=== PATIENT | female | born 1990 | race African-American/Black ===

== ENCOUNTER 2019-02-14 09:22 | Emergency (ER) | payer SELFPAY ==
[2019-02-14 09:26] VITALS: BP 116/73; PULSE 83; TEMP 98.1; BMI 22.9
--- NOTE | 2019-02-14 10:29 | PDOC ---
History of Present Illness - General Chief Complaint: Diarrhea Stated Complaint: DIARRHEA Time Seen by Provider: 02/14/19 09:47 - History of Present Illness Initial Comments: 02/14/19 10:23 CHIEF COMPLAINT: diarrhea HISTORY OF PRESENT ILLNESS: 28 yo F with no PMH presents to [facility] for diarrhea x 5 days. Patient states she and her boyfriend went to eat last monday and on Monday when she woke up she's had diarrhea every day since. She denies any fever, abdominal pain, vomiting. Reports 4-5 episodes diarrhea daily. No recent travel or sick contacts. PAST MEDICAL HISTORY: Denies past medical history FAMILY HISTORY: Denies SOCIAL HISTORY: Denies tobacco, alcohol, illicit drug use. SURGICAL HISTORY: Denies ALLERGIES: No known drug allergies REVIEW OF SYSTEMS General/Constitutional: Denies fever or chills. Denies weakness, weight change. HEENT: Denies change in vision. Denies ear pain or discharge. Denies sore throat. Cardiovascular: Denies chest pain or shortness of breath. Respiratory: Denies cough, wheezing, or hemoptysis. Gastrointestinal: Diarrhea x 5 days. Denies nausea, vomiting, constipation. Denies rectal bleeding. Genitourinary: Denies dysuria, frequency, or change in urination. Musculoskeletal: Denies joint or muscle swelling or pain. Denies neck or back pain. Skin and breasts: Denies rash or easy bruising. Neurologic: Denies headache, vertigo, loss of consciousness, or loss of sensation. PHYSICAL EXAM General Appearance: Well-appearing, appropriately dressed. No apparent distress , no intoxication. HEENT: EOMI, PERRLA, normal ENT inspection, normal voice, TMs normal, pharynx normal. No conjunctival pallor. No photophobia, scleral icterus. Neck: Supple. Trachea midline. No tenderness, rigidity, carotid bruit, stridor , lymphadenopathy, or thyromegaly. Respiratory/Chest: Lungs CTAB. No shortness of breath, chest tenderness, respiratory distress, accessory muscle use. No crackles, rales, rhonchi, stridor , wheezing, dullness Cardiovascular: RRR. S1, S2. No JVD, murmur, bradycardia, tachycardia. Vascular Pulses: Dorsalis-Pedis (R): 2+, Dorsalis-Pedis (L): 2+ Gastrointestinal/Abdominal: Normal bowel sounds. Abdomen soft, non-distended. No tenderness or rebound tenderness. No organomegaly, pulsatile mass, guarding , hernia, hepatomegaly, splenomegaly. Musculoskeletal/Extremities: Normal inspection. FROM of all extremities, normal capillary refill. Pelvis Stable. No CVA tenderness. No tenderness to extremities, pedal edema, swelling, erythema or deformity. Integumentary: Appropriate color, dry, warm. No cyanosis, erythema, jaundice or rash Neurologic: socket puller II-XII intact. Fully oriented, alert. Appropriate mood/affect. Motor strength 5/5. No appreciable EOM palsy, facial droop or sensory deficit. 02/14/19 10:56 Past History - Past Medical History Allergies/Adverse Reactions: Allergies Allergy/AdvReac Type Severity Reaction Status Date / Time No Known Allergies Allergy Verified 02/14/19 09:26 Home Medications: Ambulatory Orders Loperamide HCl [Anti-Diarrheal] 2 mg PO ASDIR #10 tablet 02/14/19 COPD: No - Suicide/Smoking/Psychosocial Hx Smoking History: Never smoked Information on smoking cessation initiated: No Hx Alcohol Use: No Drug/Substance Use Hx: No *Physical Exam - Vital Signs Last Vital Signs Temp Pulse Resp BP Pulse Ox 98.1 F 83 19 116/73 99 02/14/19 09:24 02/14/19 09:24 02/14/19 09:24 02/14/19 09:24 02/14/19 09:24 Medical Decision Making - Medical Decision Making 02/14/19 10:59 28 yo F with no PMH [facility] to [facility] for diarrhea x 5 days. Patient states she and her boyfriend went to eat last monday and on Monday when she woke up she's had diarrhea every day since. -loperamide Advised patient to stay well hydrated and of signs and symptoms for return to ER. PAtient verbalized understanding and agrees to plan. *DC/Admit/Observation/Transfer Diagnosis at time of Disposition: Diarrhea Qualifiers: Diarrhea type: unspecified type Qualified Code(s): R19.7 - Diarrhea, unspecified - Discharge Dispostion Disposition: HOME Condition at time of disposition: Stable Decision to Admit order: No - Prescriptions Prescriptions: Loperamide HCl [Anti-Diarrheal] 2 mg PO ASDIR #10 tablet - Referrals Referrals: Jerome Jules [Primary Care Provider] - - Patient Instructions Printed Discharge Instructions: [place] Diet, DI for Diarrhea and Traveler's Diarrhea -- Adult - Post Discharge Activity
== END 2019-02-14 11:04 | disposition home or self-care (01) ==
LOC: JERFT 09:22
DX: R19.7 Diarrhea, unspecified (principal)
CPT/HCPCS: 99282-25

== ENCOUNTER 2019-07-01 07:21 | Emergency (ER) | payer OTHER ==
[2019-07-01 07:39] VITALS: BP 101/58; PULSE 77; TEMP 98; BMI 24.0
--- NOTE | 2019-07-01 08:07 | PDOC ---
History of Present Illness - General Chief Complaint: Pain, Acute Stated Complaint: CRAMPS, 7WEEKS Time Seen by Provider: 07/01/19 08:05 History Source: Patient Exam Limitations: No Limitations - History of Present Illness Initial Comments: 28 yo F approximately 7 weeks GA based on LMP with no past medical history presents to the emergency department with abdominal cramping that has been ongoing for 7 days. Per the patient, she states that it began gradually and is located in the lower abdomen most notably in the suprapubic region. Denies the following: fevers, chills, SOB, chest pain, nausea, vomiting, dysuria, hematuria , diarrhea, and leg pain/swelling. Per the patient, she denies trauma to the region. The cramps are described as the following: dull, 3/10, non radiating, without aggravating or reliving factors that are intermittent in nature. Denies associative vaginal bleeding and discharge Allergies: NKDA Past History - Past Medical History Allergies/Adverse Reactions: Allergies Allergy/AdvReac Type Severity Reaction Status Date / Time No Known Allergies Allergy Verified 07/01/19 07:36 Home Medications: Ambulatory Orders Loperamide HCl [Anti-Diarrheal] 2 mg PO ASDIR #10 tablet 02/14/19 Clotrimazole [Ebcb-Hxqojmwt-9] 45 gm VG DAILY 7 Days #1 cream.appl 07/01/19 Pnv No.95/Ferrous Fum/Folic AC [ Vitamin Tablet] 1 each PO DAILY #28 tablet 07/01/19 Anemia: Yes (CHILDHOOD) COPD: No - Immunization History Immunization Up to Date: Yes - Psycho Social/Smoking Cessation Hx Smoking History: Never smoked Hx Alcohol Use: No Drug/Substance Use Hx: No Review of Systems - Review of Systems Able to Perform ROS?: Yes Is the patient limited Bulgarian proficient: No Constitutional: No: Chills, Diaphoresis, Fever, Weakness HEENTM: No: Eye Pain, Ear Pain, Nose Pain, Throat Pain, Mouth Pain Respiratory: No: Cough, Shortness of Breath, Hemoptysis Cardiac (ROS): No: Chest Pain, Lightheadedness, Palpitations, Chest Tightness ABD/GI: Yes: Abdominal cramping. No: Constipated, Diarrhea, Nausea, Poor Appetite, Poor Fluid Intake, Rectal Bleeding, Vomiting, Indigestion, Tarry Stools : No: Burning, Hematuria Musculoskeletal: No: Back Pain, Joint Pain, Neck Pain Integumentary: No: Bruising, Erythema, Rash Neurological: No: Headache, Numbness, Tremors Psychiatric: No: Change in Appetite Endocrine: No: Unexplained Weight Loss Hematologic/Lymphatic: No: Anemia *Physical Exam - Vital Signs Last Vital Signs Temp Pulse Resp BP Pulse Ox 98.0 F 77 18 101/58 L 100 07/01/19 07:37 07/01/19 07:37 07/01/19 07:37 07/01/19 07:37 07/01/19 07:37 - Physical Exam General Appearance: Yes: Nourished, Appropriately Dressed. No: Apparent Distress, Intoxicated HEENT: positive: EOMI, ROGERIO, Normal Voice, Symmetrical, Pharynx Normal, Hearing Grossly Normal. negative: Pale Conjunctivae, Scleral Icterus (R), Scleral Icterus (L), Muffled/Hoarse voice, Pharyngeal Erythema, Tonsillar Exudate, Tonsillar Erythema, Nasal Congestion, Rhinorrhea, Excessive drooling Neck: positive: Trachea midline, Supple. negative: Tender, Lymphadenopathy (R) , Lymphadenopathy (L) Respiratory/Chest: positive: Lungs Clear, Normal Breath Sounds. negative: Chest Tender, Respiratory Distress, Accessory Muscle Use Cardiovascular: positive: Regular Rhythm, Regular Rate, S1, S2. negative: Systolic Murmur Female Pelvic Exam: positive: normal external exam, cervical os closed, other ( discharge consistent with brandt). negative: CMT, adnexal tenderness, vaginal bleeding Gastrointestinal/Abdominal: positive: Normal Bowel Sounds, Flat, Soft. negative : Tender, Distended, Guarding, Rebound Lymphatic: negative: Adenopathy Musculoskeletal: positive: Normal Inspection. negative: CVA Tenderness, Vertebral Tenderness Extremity: positive: Normal Capillary Refill, Normal Inspection, Normal Range of Motion. negative: Tender Integumentary: positive: Normal Color, Dry, Warm. negative: Swelling, Ecchymosis Neurologic: positive: business services specialist sales II-XII NML intact, Fully Oriented, Alert, Normal Mood/ Affect ED Treatment Course - LABORATORY CBC & Chemistry Diagram: 07/01/19 08:40 07/01/19 08:40 Medical Decision Making - Medical Decision Making 28 yo F approximately 7 weeks GA based on LMP with no past medical history presents to the emergency department with abdominal cramping that has been ongoing for 7 days. Initial vitals: Initial Vital Signs Temp Pulse Resp BP Pulse Ox 98.0 F 77 18 101/58 L 100 07/01/19 07:37 07/01/19 07:37 07/01/19 07:37 07/01/19 07:37 07/01/19 07:37 Work up: patient has no focal tenderness on abdominal exam. no high risk factors including localizing of pain, fevers, uncontrollable nausea and vomiting, and vaginal bleeding and discharge. will order TVUS to determine status. Laboratory Tests 07/01/19 07/01/19 07/01/19 08:40 08:40 08:40 WBC 7.5 RBC 3.92 Hgb 12.6 Hct 37.1 MCV 94.5 MCH 32.1 MCHC 34.0 RDW 12.9 Plt Count 210 MPV 9.9 Absolute Neuts (auto) 4.3 Neutrophils % 56.6 Lymphocytes % 35.1 Monocytes % 5.4 Eosinophils % 2.4 Basophils % 0.5 Nucleated RBC % 0 Sodium Cancelled Potassium Cancelled Chloride Cancelled Carbon Dioxide Cancelled Anion Gap Cancelled BUN Cancelled Creatinine Cancelled Est GFR (CKD-EPI)AfAm Cancelled Est GFR (CKD-EPI)NonAf Cancelled Random Glucose Cancelled Calcium Cancelled Total Bilirubin Cancelled AST Cancelled ALT Cancelled Alkaline Phosphatase Cancelled Total Protein Cancelled Albumin Cancelled Beta HCG, Quant Cancelled Urine Color Urine Appearance Urine pH Ur Specific [place] Urine Protein Urine Glucose (UA) Urine Ketones Urine Blood Urine Nitrite Urine Bilirubin Urine Urobilinogen Ur Leukocyte Esterase Urine WBC (Auto) Urine RBC (Auto) Urine Casts (Auto) U Epithel Cells (Auto) Urine Bacteria (Auto) C. trachomatis (LISA) Negative N.gonorrhoeae DNA (LISA) Negative T. vaginalis (LISA) Negative Blood Type Antibody Screen 07/01/19 07/01/19 08:40 08:40 WBC RBC Hgb Hct MCV MCH MCHC RDW Plt Count MPV Absolute Neuts (auto) Neutrophils % Lymphocytes % Monocytes % Eosinophils % Basophils % Nucleated RBC % Sodium Potassium Chloride Carbon Dioxide Anion Gap BUN Creatinine Est GFR (CKD-EPI)AfAm Est GFR (CKD-EPI)NonAf Random Glucose Calcium Total Bilirubin AST ALT Alkaline Phosphatase Total Protein Albumin Beta HCG, Quant Urine Color Yellow Urine Appearance Clear Urine pH 6.5 Ur Specific [place] 1.025 Urine Protein Negative Urine Glucose (UA) Negative Urine Ketones Negative Urine Blood Trace-intact Urine Nitrite Negative Urine Bilirubin Negative Urine Urobilinogen 0.2 Ur Leukocyte Esterase Negative Urine WBC (Auto) 1.5 Urine RBC (Auto) 3.2 Urine Casts (Auto) 1.86 U Epithel Cells (Auto) 3.8 Urine Bacteria (Auto) 53.6 C. trachomatis (LISA) N.gonorrhoeae DNA (LISA) T. vaginalis (LISA) Blood Type A POSITIVE Antibody Screen Negative cbc negative ua negative TVUS shows SIUP of 8 weeks 1 day with a right ovarian cyst and left ovarian dermoid. The patient was given the results of her US and was advised to follow up with OBGYN within 3 days after discharge for follow up care and management. Given prescription for pre- vitamins and given prescription for brandt infection Strict return precautions given Discharge - Discharge Information Problems reviewed: Yes Clinical Impression/Diagnosis: , Abdominal pain, Vaginal candidiasis Condition: Stable Disposition: HOME - Admission No - Additional Discharge Information Prescriptions: Clotrimazole [Hbms-Rqmqtjxs-1] 45 gm VG DAILY 7 Days #1 cream.appl Pnv No.95/Ferrous Fum/Folic AC [ Vitamin Tablet] 1 each PO DAILY #28 tablet - Follow up/Referral Referrals: Jerome Jules [Primary Care Provider] - - Patient Discharge Instructions Patient Printed Discharge Instructions: Diet, DI for -- Discomforts and Remedies, DI for Abdominal Pain -- Early Additional Instructions: You were seen in the emergency department for the evaluation of your abdominal pain. Your US shows an 8 week 1 day single intrauterine . Your labs were within normal limits. Please follow up with your OBGYn physicians within 1 week after discharge for follow up care and management. Please return to the emergency department if you have worsening symptoms or new concerning symptoms such as fevers, uncontrollable nausea and vomiting, vaginally bleeding, and worsening discharge. - Post Discharge Activity
[2019-07-01] MEDS ORDERED: ACETAMINOPHEN 325 MG TABLET (FP) PO ONE (08:27)
[2019-07-01] MEDS ORDERED: ACETAMINOPHEN 325 MG TABLET (FP) ONE (08:36)
--- NOTE | 2019-07-01 08:36 | PDOC ---
Attending Attestation - Resident Resident Name: KikiMartin - ED Attending Attestation I have performed the following: I have examined & evaluated the patient, The case was reviewed & discussed with the resident, I agree w/resident's findings & plan, Exceptions are as noted - HPI HPI: 07/01/19 11:32 28 years old with some lower abdominal discomfort no bleeding - Physicial Exam PE: 07/01/19 11:32 Vitals: Triage Vital signs reviewed General Appearance: No acute distress, well nourished well developed, Cardiac: Regular rate and rhythym, no murmurs, no rubs, no gallops, Lungs: Clear to auscultation bilateral, good air movement bilaterally, Abdomen: Soft, non distended, normal bowel sounds, non tender to palpation - Medical Decision Making 07/01/19 11:33 positive IUP with detectable heart rate on ultrasound a positive repeat abdominal examination benign history examination consistent with early pregnancyPatient advised not to travel to 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
[2019-07-01 09:15] LABS: BASO % 0.5 % (0-2.0); EOS % 2.4 % (0-4.5); HEMATOCRIT 37.1 % (32.4-45.2); HEMOGLOBIN 12.6 GM/dL (10.7-15.3); LYMPH % 35.1 % (8-40); MCH 32.1 pg (25.7-33.7); MEAN CELL VOLUME 94.5 fl (80-96); MEAN PLT VOLUME 9.9 fl (7.5-11.1); MONO % 5.4 % (3.8-10.2); NEUT % 56.6 % (42.8-82.8); PLATELET COUNT 210 K/MM3 (134-434); RBC 3.92 M/mm3 (3.60-5.2); RDW 12.9 % (11.6-15.6); WHITE BLOOD COUNT 7.5 K/mm3 (4.0-10.0)
[2019-07-01 09:22] LABS: PH,URINE 6.5 (5.0-8.0); URINE APPEARANCE Clear; URINE BILIRUBIN Negative (NEGATIVE); URINE COLOR Yellow; URINE GLUCOSE (UA) Negative (NEGATIVE); URINE KETONE Negative (NEGATIVE); URINE LEUK ESTERASE Negative (NEGATIVE); URINE NITRITE Negative (NEGATIVE); URINE PROTEIN Negative (NEGATIVE); URINE UROBILINOGEN 0.2 mg/dL (0.2-1.0)
[2019-07-01 11:53] LABS: EPI CELLS 3.8 /HPF (0-5/HPF); HYALINE CASTS 1.86 /lpf (0-8); URINE BACTERIA 53.6 /hpf (NEGATIVE); URINE RBC 3.2 /hpf (0-4); URINE WBC 1.5 /hpf (0-5)
== END 2019-07-01 11:41 | disposition home or self-care (01) ==
LOC: JER 07:21
DX: O26.891 Other specified pregnancy related conditions, first trimester (principal); O98.811 Other maternal infectious and parasitic diseases complicating pregnancy, first trimester; B37.3 Candidiasis of vulva and vagina; Z3A.08 8 weeks gestation of pregnancy; Z87.09 Personal history of other diseases of the respiratory system
CPT/HCPCS: 36415; 76817-TC; 81003; 85025; 86850; 86900; 86901; 87086; 87491; 87591; 87661; 99282-25

== ENCOUNTER 2020-02-10 14:52 | Inpatient (IN) | payer OTHER ==
[2020-02-10 17:12] VITALS: BMI 25.7
--- NOTE | 2020-02-10 19:47 | HP ---
Past Medical History - Primary Care Physician PCP:: Kassi Gomez - Admission Chief Complaint: 29yo P 1 @ 40.1wks, with +FM, no VB, no LOF, no ctx, with category 2 NST, for IOL History of Present Illness: 1. SGA fetus - EFW 3359gm - 33% 02/07/20 2. abn GCT- abn-164. fasting in 3hr GTT - 163, and normal repeat 3. GBS neg-no need for prophylaxis History Source: Patient Limitations to Obtaining History: No Limitations - Past Medical History ...: 4 ...Para: 1 () ...Term: 1 ...: 0 ...Spon : 0 ...Induced : 2 ...Living Children: 1 ...Multiple Gestation: 0 ...LMP: 05/04/19 ... Weeks Gestation by Dates: 40.1 ...EDC by Dates: 02/09/20 ...EDC by Sono: 02/23/20 - Past Surgical History Past Surgical History: Yes: None Hx Myomectomy: No Hx Transabdominal Cerclage: No - Smoking History Smoking history: Never smoked Have you smoked in the past 12 months: No - Alcohol/Substance Use Hx Alcohol Use: No History of Substance Use: reports: None - Social History Usual Living Arrangement: Yes: Alone Home Medications - Allergies Allergies/Adverse Reactions: Allergies Allergy/AdvReac Type Severity Reaction Status Date / Time No Known Allergies Allergy Verified 02/10/20 16:30 - Home Medications Home Medications: Ambulatory Orders Pnv No.95/Ferrous Fum/Folic AC [ Vitamin Tablet] 1 each PO DAILY #28 tablet 07/01/19 Review of Systems - Review of Systems Constitutional: reports: No Symptoms Eyes: reports: No Symptoms HENT: reports: No Symptoms Neck: reports: No Symptoms Cardiovascular: reports: No Symptoms Respiratory: reports: No Symptoms Gastrointestinal: reports: No Symptoms Genitourinary: reports: No Symptoms Breasts: reports: No Symptoms Reported Musculoskeletal: reports: No Symptoms Integumentary: reports: No Symptoms Neurological: reports: No Symptoms Endocrine: reports: No Symptoms Hematology/Lymphatic: reports: No Symptoms Psychiatric: reports: No Symptoms Physical Exam - Maternity Vital Signs: Vital Signs Temperature 98.1 F 02/10/20 17:41 Pulse Rate 92 H 02/10/20 17:41 Respiratory Rate 20 02/10/20 17:41 Blood Pressure 98/52 L 02/10/20 17:41 O2 Sat by Pulse Oximetry (%) Constitutional: Yes: Well Nourished Eyes: Yes: WNL HENT: Yes: WNL Neck: Yes: WNL Cardiovascular: Yes: WNL Lungs: Clear to auscultation Breast(s): Yes: WNL - Abdominal Exam/OB Fundal Height: 39 (EFW 7lb) Number of Fetuses: Single Presentation: Vertex Contractions: Yes Regularity: Irregular Intensity: Mild Heart Rate (range): 140's Category: I Accelerations: Uniform Decelerations: None - Vaginal Exam/OB Vaginal Bleeding: No Speculum Exam: No Dilatation (cm): 1-2 Effacement (%): 50% Amniotic Membrane Status: Intact Presentation: Vertex/Position Station: -3 - Physical Exam Musculoskeletal: Yes: WNL Extremities: Yes: WNL Edema: No Integumentary: Yes: WNL ...Motor Strength: WNL Psychiatric: Yes: WNL, Alert, Oriented Assessment/Plan 29yo P0 @ 40.1wks with unfavorable cervix, and reassuring FHR, postterm we had a long descussion about recommendation to induce labor since cervix is unfavorable will procede with Cervidil induction r/b/a of expectant managment, vs. Induction, vs. Elective c/section Patient chose to proceed with IOL - process discussed in detail will continue monitoring FHR Admit to L&D IVF, Labs, NPO
[2020-02-10] MEDS ORDERED: DINOPROSTONE 10 MG VAGINAL SUPPOSITORY VG ONE (19:55)
[2020-02-10] MEDS: ELECTROLYTE-148 SOLN 1,000 ML IV SCH (20:15)
[2020-02-10 20:33] LABS: BASO % 0.3 % (0-2.0); HEMATOCRIT 36.9 % (32.4-45.2); HEMOGLOBIN 12.2 GM/dL (10.7-15.3); LYMPH % 24.4 % (8-40); MCHC 33.2 g/dl (32.0-36.0); MEAN CELL VOLUME 93.3 fl (80-96); MEAN PLT VOLUME 11.5 fl (7.5-11.1); MONO % 7.2 % (3.8-10.2); NEUT % 67.1 % (42.8-82.8); PLATELET COUNT 110 K/MM3 (134-434); RBC 3.95 M/mm3 (3.60-5.2); RDW 14.8 % (11.6-15.6); WHITE BLOOD COUNT 10.7 K/mm3 (4.0-10.0)
[2020-02-10 20:42] LABS: INR 0.97 (0.83-1.09); PROTHROMBIN TIME (PATIENT) 11.4 SEC (9.7-13.0)
[2020-02-10 20:44] LABS: ACTIVATED PTT 30.9 SECONDS (25.2-36.5)
[2020-02-10 20:45] LABS: BLOOD UREA NITROGEN 9.2 mg/dL (7-18); CALCIUM 8.7 mg/dL (8.5-10.1); CREATININE 0.4 mg/dL (0.55-1.3); POTASSIUM 3.7 mmol/L (3.5-5.1)
[2020-02-10] MEDS ORDERED: BUTORPHANOL TARTRATE 2 MG/ML VIAL IVPUSH ONE (23:26)
[2020-02-10] MEDS ORDERED: PROMETHAZINE HCL 25 MG/1 ML VIAL IVPUSH ONE (23:26)
[2020-02-11] MEDS: ELECTROLYTE-148 SOLN 1,000 ML IV SCH ×2 (01:00→09:30)
[2020-02-11] MEDS ORDERED: OXYTOCIN 30 UNITS in 0.9% NS 30 UNIT/500 ML INFUS.BAG IVPB SCH (09:30)
--- NOTE | 2020-02-11 09:52 | PN ---
Progress Note, Labor Vaginal Exam #1 Labor Exam Date: 02/11/20 Labor Exam Time: 09:35 Heart Rate (range): 140 Category 1 Dilatation: 2 Effacement (%): 50 Amniotic Membrane Status: Intact Presentation: Vertex/Position Station: -3 Remarks: IOL for postterm EFW 7.5lb Cervical suárez placed 80cc used to inflate the balloon Tolerated well Start Pitocin @ 1mU/min, increase slow Platlets 110 - likely gestational Thrombocytopenia, no s/s of PEC MF Status reassuring
[2020-02-11] MEDS ORDERED: OXYTOCIN 20 UNITS in 0.9% NS 20 UNIT/1,000 ML INFUS.BAG IV ONE ×2 (09:55→14:54)
[2020-02-11] MEDS ORDERED: OXYTOCIN 30 UNITS in 0.9% NS 30 UNIT/500 ML INFUS.BAG IVPB ONE (09:56)
[2020-02-11] MEDS ORDERED: PROMETHAZINE HCL 25 MG/1 ML VIAL ONE (11:16)
[2020-02-11] MEDS ORDERED: BUTORPHANOL TARTRATE 2 MG/ML VIAL ONE (11:16)
--- NOTE | 2020-02-11 13:24 | PN ---
Ante-Partal Exam - Subjective Subjective: Pt with contractions and s/p SROM with clear fluid. Some early decels were noted earlier but resolved with position change. Now occasional mild and rare variables noted. Pitocin was decreased to 2 mU Vital Signs: Vital Signs Temperature 98.2 F 02/11/20 10:00 Pulse Rate 68 02/11/20 12:00 Respiratory Rate 18 02/11/20 12:00 Blood Pressure 116/70 02/11/20 12:00 O2 Sat by Pulse Oximetry (%) 99 02/10/20 21:00 Bleeding: No Headache: No Visual changes: No Right upper quadrant pain: No Pain (scale 1-10): 7 - Contractions Contractions: Yes (q4min) Regularity: Regular Intensity: Moderate Monitor Mode: External - Exam during Labor Heart Rate: 135 Variability: Moderate Heart Rate Location: Midline Category: I Monitor Accelerations: Present Monitor Decelerations: Variable (rare, to 120 bpm) Amniotic Membrane Status: Leaking Amniotic Fluid: Clear Presentation: Vertex - Intrapartum Hemorrhage Risk Medium Risk Factors: None High Risk Factors: None Risk Score: 0 Risk Level: Low Risk - Assessment/Plan Assessment/Plan: Fetus with Category I tracing and requires no intervention Continue monitoring in labor.
[2020-02-11] MEDS ORDERED: LIDOCAINE HCL 1% PRESERVATIVE FREE - 30ML VIAL ONE (14:55)
[2020-02-11] MEDS ORDERED: BENZOCAINE 28 GM HEMORRHOIDAL OINTMENT TP PRN (15:21)
[2020-02-11] MEDS ORDERED: BENZOCAINE 20% 57 GM BOTTLE TP PRN (15:21)
[2020-02-11] MEDS ORDERED: WITCH HAZEL 50% (TUCKS) 40 PAD/JAR PAD TP PRN (15:21)
[2020-02-11] MEDS ORDERED: METHYLERGONOVINE MALEATE 0.2 MG/1 ML AMP IM PRN (15:21)
[2020-02-11] MEDS ORDERED: BISACODYL 10 MG SUPP.RECT RC PRN (15:21)
[2020-02-11] MEDS ORDERED: OXYTOCIN 20 UNITS in 0.9% NS 20 UNIT/1,000 ML INFUS.BAG IV SCH (15:30)
[2020-02-11 16:29] LABS: CORD HCO3 21.5 mmHg (20-29); CORD PCO2 40.6 mmHg (30-78); CORD pH 7.341 (7.14-7.44)
[2020-02-11] MEDS: ACETAMINOPHEN 325 MG TABLET (FP) PO PRN ×2 (17:20→21:28)
[2020-02-11] MEDS: IBUPROFEN 600 MG TABLET (FP) PO PRN ×2 (17:21→21:28)
--- NOTE | 2020-02-11 19:41 | PN ---
Delivery - Delivery Vaginal Delivery: No Problems, Spontaneous Type of Anesthesia: None Episiotomy/Laceration: None EBL (cc): 300 Delivery, Single - Stages of Labor Date 1st Stage Initiatied: 02/11/20 Time 1st Stage Initiated: 10:00 Date 2nd Stage Initiated: 02/11/20 Time 2nd Stage Initiated: 15:05 Date of Delivery: 02/11/20 Time of Delivery: 15:12 Time Placenta Delivered: 15:18 Placenta: Yes: Spontaneous, Normal Configuration - Condition of Pet Technologist/Critical Care Transport Nurse Present: No Infant Gender: Female Weight: 2.92 kg Position: Left, OA Total Hours ROM (Hrs/Mins): 3h3m - 1 Minute Total Score: 9 5 Minutes Total Score: 9 - [place] Feeding Plan Initial Plan: Exclusive throughout hospitalization Benefits of Exclusively reinforced: Yes Remarks - Remarks Remarks: w/o complications. Dr. Chakraborty assisted w/coverage.
[2020-02-12] MEDS: ELECTROLYTE-148 SOLN 1,000 ML IV SCH (00:10)
[2020-02-12] MEDS: ACETAMINOPHEN 325 MG TABLET (FP) PO PRN ×2 (08:32→14:57)
[2020-02-12] MEDS: IBUPROFEN 600 MG TABLET (FP) PO PRN ×2 (08:33→14:58)
[2020-02-12 08:58] LABS: BASO % 0.3 % (0-2.0); EOS % 0.9 % (0-4.5); HEMATOCRIT 35.4 % (32.4-45.2); HEMOGLOBIN 11.7 GM/dL (10.7-15.3); LYMPH % 22.6 % (8-40); MCH 30.5 pg (25.7-33.7); MCHC 33.1 g/dl (32.0-36.0); MEAN CELL VOLUME 92.3 fl (80-96); MEAN PLT VOLUME 11.3 fl (7.5-11.1); MONO % 7.5 % (3.8-10.2); NEUT % 68.7 % (42.8-82.8); PLATELET COUNT 107 K/MM3 (134-434); RBC 3.84 M/mm3 (3.60-5.2); RDW 14.5 % (11.6-15.6); WHITE BLOOD COUNT 9.2 K/mm3 (4.0-10.0)
[2020-02-12] MEDS: PRENATAL VITAMINS W/ FOLIC ACID TABLET (FP) PO SCH (10:07)
[2020-02-12] MEDS ORDERED: SENNOSIDES/DOCUSATE COMBO (SENNA PLUS) TABLET (UD) PO PRN (22:00)
--- NOTE | 2020-02-13 08:58 | PN ---
Post Progress Note - Subjective Subjective: Patient without acute complaints. Reports tolerating oral intake without nausea or vomiting. Ambulating without dizziness. Denies fevers or chills. Pain well controlled with oral pain medication. with mild nipple discomfort Passing flatus. Type of Delivery: Vital Signs: Vital Signs Temperature 97.5 F L 02/12/20 20:59 Pulse Rate 67 02/12/20 20:59 Respiratory Rate 20 02/12/20 20:59 Blood Pressure 103/71 02/12/20 20:59 O2 Sat by Pulse Oximetry (%) 100 02/11/20 16:15 Breast Exam: Yes: Soft Uterus: Yes: Fundus Firm Abdomen/GI: Yes: Abdomen soft, Passing flatus, Tolerating PO. No: Abdominal Distention, Tender Lochia: Yes: Rubra Lochia, amount: Moderate Extremities: Yes: Calves non-tender. No: Edema Activity: Ambulating - Labs Labs: CBC WBC 9.2 K/mm3 (4.0-10.0) 02/12/20 08:18 RBC 3.84 M/mm3 (3.60-5.2) 02/12/20 08:18 Hgb 11.7 GM/dL (10.7-15.3) 02/12/20 08:18 Hct 35.4 % (32.4-45.2) 02/12/20 08:18 MCV 92.3 fl (80-96) 02/12/20 08:18 MCH 30.5 pg (25.7-33.7) 02/12/20 08:18 MCHC 33.1 g/dl (32.0-36.0) 02/12/20 08:18 RDW 14.5 % (11.6-15.6) 02/12/20 08:18 Plt Count 107 K/MM3 (134-434) L 02/12/20 08:18 MPV 11.3 fl (7.5-11.1) H 02/12/20 08:18 Absolute Neuts (auto) 6.3 K/mm3 (1.5-8.0) 02/12/20 08:18 Neutrophils % 68.7 % (42.8-82.8) 02/12/20 08:18 Lymphocytes % 22.6 % (8-40) 09/02/20 08:18 Monocytes % 7.5 % (3.8-10.2) 02/12/20 08:18 Eosinophils % 0.9 % (0-4.5) 02/12/20 08:18 Basophils % 0.3 % (0-2.0) 02/12/20 08:18 Nucleated RBC % 0 % (0-0) 02/12/20 08:18 Assessment/Plan 30 yo PPD # 2 s/p , afebrile, vital signs stable, doing well 1. Patient stable for discharge home today. 2. Discussed , encouragemnet provided 3. Patient encouraged to contact MD for: - Severe pain not controlled by oral pain medication - Fevers or chills - Nausea or vomiting, intolerance of oral intake 4. Patient to follow up in office in 4-6 weeks for visit
--- NOTE | 2020-02-13 09:01 | DS ---
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 Vital Signs: Vital Signs Temperature 97.5 F L 02/12/20 20:59 Pulse Rate 67 02/12/20 20:59 Respiratory Rate 20 02/12/20 20:59 Blood Pressure 103/71 02/12/20 20:59 O2 Sat by Pulse Oximetry (%) 100 02/11/20 16:15 Labs: CBC, BMP 02/12/20 08:18 02/10/20 20:23 Delivery - Delivery Vaginal Delivery: No Problems, Spontaneous Type of Anesthesia: None Episiotomy/Laceration: None EBL (cc): 300 Delivery, Single - Stages of Labor Date 1st Stage Initiatied: 02/11/20 Time 1st Stage Initiated: 10:00 Date 2nd Stage Initiated: 02/11/20 Time 2nd Stage Initiated: 15:05 Date of Delivery: 02/11/20 Time of Delivery: 15:12 Time Placenta Delivered: 15:18 Placenta: Yes: Spontaneous, Normal Configuration - Condition of Drafter Refrigeration/Dietary Aide Teacher Present: No Gender: Female Weight: 6 lb 7 oz Position: Left, OA Total Hours ROM (Hrs/Mins): 3h3m - 1 Minute Total Score: 9 5 Minutes Total Score: 9 - [place] Feeding Plan Initial Plan: Exclusive throughout hospitalization Benefits of Exclusively reinforced: Yes Discharge Summary Problems reviewed: Yes Reason For Visit: INDUCTION Current Active Problems Encounter for induction of labor (Acute) Vaginal delivery (Acute) Procedures: Principal: Vaginal Delivery Hospital Course: Patient was admitted for induction of labor. HD # 1 patient received cervidil and later received pitocin for induction of lab or Proceeded to deliver via , viable female infant PPD # 1 patient ambulated, voiding, passing gas, tolerating oral intake and with adequate pain control. She fulfilled all criteria for discharge PPD #2 Condition: Good - Instructions Diet, Activity, Other Instructions: Follow up in 4-6 wks for visit Physical activity Resume your normal everyday activity as tolerated no heavy lifting or exercise until seen by your surgeon. You may walk unlimited giancarlo of and climb stairs. You may resume driving the car when you feel safe and comfortable behind the wheel. No sexual activity as instructed. Diet There are no dietary restrictions. Eat healthy, high-fiber foods. Drink 6 to 8 glasses of liquid each day. This will assist in keeping your bowels are regular. Pain management You may take Tylenol or acetaminophen or Ibuprofen (for example, Motrin, Advil etc.) for moderate to severe pain. Call MD for any of the following: Severe pain not relieved by medication Fever of 101 or higher Excessive bleeding or drainage on dressing Inability to urinate Referrals: Kassi Gomez MD [Staff Physician] - Disposition: HOME - Home Medications Comprehensive Discharge Medication List: Ambulatory Orders Pnv No.95/Ferrous Fum/Folic AC [ Vitamin Tablet] 1 each PO DAILY #28 tablet 07/01/19 Prescription Drug Monitoring Program (I-STOP) results: I-STOP not reviewed
[2020-02-13] MEDS: PRENATAL VITAMINS W/ FOLIC ACID TABLET (FP) PO SCH (09:49)
[2020-02-13 11:39] VITALS: BP 107/69; PULSE 75; TEMP 97.8
== END 2020-02-13 13:42 | disposition home or self-care (01) | DRG 560 ==
LOC: JLDR 14:52 → UNDOADMIN 15:49 → J3W 02-11 16:50
PROVIDERS: ADMIT Obstetrics & Gynecology; ATTEND Obstetrics & Gynecology
PROC: 3E0P7VZ Introduction of Hormone into Female Reproductive, Via Natural or Artificial Opening (ICD-10-PCS; 2020-02-10)
PROC: 10E0XZZ Delivery of Products of Conception, External Approach (ICD-10-PCS; principal; 2020-02-11)
DX: O42.02 Full-term premature rupture of membranes, onset of labor within 24 hours of rupture (principal); O34.43 Maternal care for other abnormalities of cervix, third trimester; Z3A.38 38 weeks gestation of pregnancy; Z37.0 Single live birth
CPT/HCPCS: 36415; 36600; 59409; 80048; 82803; 85025; 85610; 85730; 86780; 86850; 86900; 86901; U0003

== ENCOUNTER 2022-03-31 04:20 | Day surgery (SDC) | payer OTHER ==
[2022-03-31 09:20] VITALS: BMI 28.9
[2022-03-31 13:03] VITALS: RESP 16
[2022-03-31] MEDS ORDERED: MIDAZOLAM HCL 2 MG/2 ML SINGLE DOSE VIAL ONE (14:37)
[2022-03-31] MEDS ORDERED: OXYTOCIN 10 UNITS/ML VIAL ONE (14:38)
[2022-03-31] MEDS ORDERED: ceFAZolin SODIUM 1 GM VIAL IVPB ONE (15:10)
[2022-03-31] MEDS ORDERED: GLYCOPYRROLATE 0.2 MG/1 ML VIAL ONE (15:30)
[2022-03-31] MEDS ORDERED: ceFAZolin SODIUM 1 GM VIAL ONE (15:30)
[2022-03-31] MEDS ORDERED: KETOROLAC TROMETHAMINE 30 MG/1 ML VIAL ONE (15:30)
[2022-03-31] MEDS ORDERED: DEXAMETHASONE SOD PHOSPHATE 4 MG/1 ML VIAL ONE (15:30)
[2022-03-31] MEDS ORDERED: LIDOCAINE HCL/PF 2% SDV 5ML VIAL ONE (15:30)
[2022-03-31] MEDS ORDERED: ONDANSETRON 4 MG/2 ML VIAL ONE (15:30)
[2022-03-31] MEDS ORDERED: oxyCODONE HCL 5 MG TABLET PO PRN (16:08)
[2022-03-31] MEDS ORDERED: ONDANSETRON 4 MG/2 ML VIAL IVPUSH PRN (16:08)
[2022-03-31] MEDS ORDERED: ACETAMINOPHEN 325 MG TABLET (FP) PO PRN (16:08)
[2022-03-31] MEDS ORDERED: LACTATED RINGERS SOLUTION 1,000 ML IV SCH (16:15)
[2022-03-31 18:23] VITALS: BP 117/77; PULSE 65; TEMP 97.9
== END 2022-03-31 18:23 | disposition home or self-care (01) ==
LOC: JASU-SURG 04:20
PROVIDERS: ATTEND Obstetrics & Gynecology
PROC: 10D17ZZ Extraction of Products of Conception, Retained, Via Natural or Artificial Opening (ICD-10-PCS; principal; 2022-03-31 15:00)
DX: O02.1 Missed abortion (principal)
CPT/HCPCS: 88305-TC; 94760

== ENCOUNTER 2024-12-01 22:49 | Inpatient (IN) | payer OTHER ==
[2024-12-01] MEDS ORDERED: OXYTOCIN 20 UNITS in 0.9% NS 20 UNIT/1,000 ML INFUS.BAG IV ONE (23:28)
[2024-12-01] MEDS ORDERED: LIDOCAINE HCL 1% PRESERVATIVE FREE - 30ML VIAL ONE (23:28)
[2024-12-01 23:44] LABS: EOSINOPHIL % 0.4 % (0.7-5.8); EOSINOPHILS # 0.04 x10^3/uL (0.04-0.36); HEMOGLOBIN 12.7 g/dL (11.2-15.7); MEAN CELL VOLUME 89.2 fl (79.4-94.8); RDW 14.6 % (12.1-16.8)
[2024-12-01 23:45] LABS: ABSOLUTE IMMATURE GRANULOCYTES 0.05 x10^3/uL (0.0-0.031); BASOPHILS # 0.03 x10^3/uL (0.01-0.08); HEMATOCRIT 38.8 % (34.1-44.9); MCHC 32.7 g/dl (32.2-35.5); MEAN PLT VOLUME 11.9 fl (9.4-12.3); MONOCYTE # 0.65 x10^3/uL (0.24-0.86); MONOCYTE % 6.9 % (4.7-12.5); PLATELET COUNT 173 x10^3/uL (182-369)
[2024-12-01 23:52] LABS: INR 0.98 (0.83-1.09); PROTHROMBIN TIME (PATIENT) 10.7 SEC (9.7-13.0)
[2024-12-01 23:54] LABS: ACTIVATED PTT 28.9 SECONDS (25.2-36.5)
[2024-12-02 00:04] LABS: CHLORIDE 105 mmol/L (98-107); POTASSIUM 3.8 mmol/L (3.5-5.1); SODIUM 137 mmol/L (136-145)
[2024-12-02] MEDS: OXYTOCIN 20 UNITS in 0.9% NS 20 UNIT/1,000 ML INFUS.BAG IV SCH (00:05)
[2024-12-02 00:06] LABS: ANION GAP 12 mmol/L (4-13); BLOOD UREA NITROGEN 9.4 mg/dL (7-18); CO2 20 mmol/L (21-32); GLUCOSE,RANDOM 96 mg/dL (74-106)
[2024-12-02 00:10] LABS: CREATININE 0.7 mg/dL (0.55-1.3)
[2024-12-02] MEDS ORDERED: oxyCODONE HCL 5 MG TABLET PO PRN (00:16)
[2024-12-02] MEDS ORDERED: METHYLERGONOVINE MALEATE 0.2 MG/1 ML AMP IM PRN (00:16)
[2024-12-02] MEDS ORDERED: BISACODYL 10 MG SUPP.RECT RC PRN (00:16)
[2024-12-02] MEDS ORDERED: BENZOCAINE 28 GM HEMORRHOIDAL OINTMENT TP PRN (00:16)
[2024-12-02] MEDS ORDERED: WITCH HAZEL 50% (TUCKS) 40 PAD/JAR PAD TP PRN (00:16)
[2024-12-02] MEDS: ELECTROLYTE-148 SOLN 1,000 ML IV SCH (00:35)
[2024-12-02 00:49] LABS: CORD HCO3 21.3 mmHg (20-29); CORD PCO2 39.9 mmHg (30-78); CORD pH 7.345 (7.14-7.44)
[2024-12-02 01:39] VITALS: BMI 29.7
[2024-12-02] MEDS: IBUPROFEN 600 MG TABLET (FP) PO PRN (02:45)
[2024-12-02] MEDS ORDERED: IBUPROFEN 600 MG TABLET (FP) PO ONE (02:49)
[2024-12-02] MEDS: ACETAMINOPHEN 325 MG TABLET (FP) PO PRN (05:57)
[2024-12-02] MEDS: FERROUS SO4 325 MG TABLET (FP) PO SCH (08:40)
[2024-12-02] MEDS: PRENATAL VITAMINS W/ FOLIC ACID TABLET (FP) PO SCH (09:38)
[2024-12-03 07:25] LABS: ABSOLUTE IMMATURE GRANULOCYTES 0.03 x10^3/uL (0.0-0.031); BASOPHILS # 0.05 x10^3/uL (0.01-0.08); EOSINOPHIL % 1.5 % (0.7-5.8); EOSINOPHILS # 0.12 x10^3/uL (0.04-0.36); HEMATOCRIT 34.7 % (34.1-44.9); MCHC 31.7 g/dl (32.2-35.5); MEAN CELL VOLUME 91.1 fl (79.4-94.8); MONOCYTE # 0.61 x10^3/uL (0.24-0.86); MONOCYTE % 7.8 % (4.7-12.5); PLATELET COUNT 147 x10^3/uL (182-369); RDW 14.6 % (12.1-16.8)
[2024-12-03 08:57] VITALS: BP 113/79; PULSE 81; RESP 14; TEMP 98.3
[2024-12-03] MEDS: BENZOCAINE 20% 57 GM BOTTLE TP PRN (10:43)
[2024-12-03] MEDS ORDERED: SENNOSIDES/DOCUSATE COMBO (SENNA PLUS) TABLET (UD) PO PRN (22:00)
== END 2024-12-03 12:40 | disposition home or self-care (01) | DRG 560 ==
LOC: JDEL 22:49 → JLDR 22:57 → J3W 12-02 03:15
PROVIDERS: ADMIT Obstetrics & Gynecology; ATTEND Obstetrics & Gynecology
PROC: 10E0XZZ Delivery of Products of Conception, External Approach (ICD-10-PCS; principal; 2024-12-02)
PROC: 0KQM0ZZ Repair Perineum Muscle, Open Approach (ICD-10-PCS; 2024-12-02)
DX: O70.1 Second degree perineal laceration during delivery (principal); Z3A.39 39 weeks gestation of pregnancy; Z37.0 Single live birth
CPT/HCPCS: 36415; 36600; 59409; 80048; 82803; 85025; 85610; 85730; 86780; 86850; 86900; 86901